=== PATIENT | male | born 2005 | race Caucasian/White ===

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

== ENCOUNTER 2025-01-20 20:31 | Emergency (ER) | payer MEDICAID ==
[~2025-01-20] VITALS: Ht 175.3 cm; Wt 85.0 kg
[~2025-01-20 20:31] MED LIST: IBUP-1455 MT
[2025-01-20 20:53] VITALS: O2SAT 99
[2025-01-20] MEDS ORDERED: IBUP-2028 MT (22:56)
[2025-01-20] MEDS: KETOROLAC 15MG/ML VIAL IM ONE (23:03)
[2025-01-20 23:31] VITALS: BP 128/77; PULSE 89; RESP 18; TEMP 36.8; O2SAT 100
== END 2025-01-20 23:32 | disposition home or self-care (01) ==
LOC: ER 20:31
DX: S86.812A Strain of other muscle(s) and tendon(s) at lower leg level, left leg, initial encounter (principal); H57.12 Ocular pain, left eye; X50.0XXA Overexertion from strenuous movement or load, initial encounter; Y93.89 Activity, other specified; Y92.89 Other specified places as the place of occurrence of the external cause; Y99.8 Other external cause status
CPT/HCPCS: 99283; 96372; J1885